=== PATIENT | female | born 1995 | race Two or more races ===

== ENCOUNTER → 2018-04-01 | Outpatient (CLI) | payer OTHER | END | disposition home or self-care (01) | LOC: LAB 14:37 | PROVIDERS: ATTEND Nurse Practitioner | DX: Z20.9 Contact with and (suspected) exposure to unspecified communicable disease (principal) | CPT/HCPCS: 36415; 86706; 86735; 86762; 86765; 86787 ==

== ENCOUNTER → 2018-06-01 | Outpatient (CLI) | payer OTHER | END | disposition home or self-care (01) | LOC: LAB 16:02 | PROVIDERS: ATTEND Physician Assistant | DX: Z20.9 Contact with and (suspected) exposure to unspecified communicable disease (principal) | CPT/HCPCS: 86765; 86787 ==

== ENCOUNTER 2025-05-13 21:16 | Emergency (ER) | payer OTHER ==
[~2025-05-13] VITALS: Ht 154.9 cm; Wt 58.6 kg
--- NOTE | 2025-05-13 21:35 | ED.PDOC ---
Back pain HPI HPI Comments 29-YEAR-OLD FEMALE PRESENTS TO THE ED WITH C/C OF RIGHT SHOULDER PAIN S/P FALL AT WORK. PATIENT STATES SHE WAS WALKING AND TRIPPED OVER AND ELECTRIC PALLET ENE. STATES SHE FELL ON HER RIGHT SIDE LANDED DIRECTLY ON HER RIGHT SHOULDER. SHE IS COMPLAINING OF RIGHT SHOULDER PAIN 8/10 ON PAIN SCALE ACHY AND SHARP IN NATURE ALSO NOTES SOME NUMBNESS. DENIES ANY WEAKNESS OR ANY OTHER KNOWN INJURY AT THIS TIME. 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 Allergies: Coded Allergies: NO KNOWN ALLERGIES (Unverified , 05/13/25) Home Meds Active Scripts Nabumetone (Nabumetone) 500 Mg Tab, 1 TAB PO BID PRN for 10 Days, #20 TAB Prov:NICKI JOHNSON JERRY 05/13/25 Information Source: Patient Mode of Arrival: Ambulatory Past Medical History PAST MEDICAL HISTORY: Denies Surgical History: Denies all surgeries SYSTEMS MANAGER History: No Pertinent SYSTEMS MANAGER History Family History Family History: Reviewed,noncontributory to illness Social History Smoker: Non-Smoker Alcohol: Denies ETOH Use Drugs: Denies Drug Use Constitutional: denies: chills, diaphoresis, fatigue, fever, malaise, sweats, weakness, others EENTM: denies: blurred vision, double vision, ear bleeding, ear discharge, ear drainage, ear pain, ear ringing, eye pain, eye redness, hearing loss, mouth pain, mouth swelling, nasal discharge, nose bleeding, nose congestion, nose pain, photophobia, tearing, throat pain, throat swelling, voice changes, others Respiratory: denies: cough, hemoptysis, orthopnea, SOB at rest, shortness of breath, SOB with excertion, stridor, wheezing, others Cardiovascular: denies: chest pain, dizzy spells, diaphoresis, Dyspnea on exertion, edema, irregular heart beat, left arm pain, lightheadedness, palpitations, PND, syncope, others Gastrointestinal: denies: abdomen distended, abdominal pain, blood streaked bowels, constipated, diarrhea, dysphagia, difficulty swallowing, hematemesis, melena, nausea, poor appetite, poor fluid intake, rectal bleeding, rectal pain, vomiting, others Genitourinary: denies: abnormal vagina bleeding, burning, dyspareunia, dysuria, flank pain, frequency, hematuria, incontinence, pain, , vagina discharge, urgency, others Neurological: denies: dizziness, fainting, headache, left sided numbness, left sided weakness, numbness, paresthesia, pre-existing deficit, right sided numbness, right sided weakness, seizure, speech problems, tingling, tremors, weakness, others Musculoskeletal: reports: joint pain, muscle pain, muscle stiffness; denies: back pain, gout, joint swelling, neck pain, others Integumetry: denies: bruises, change in color, change in hair/nails, dryness, laceration, lesions, lumps, rash, wounds, others Allergic/Immunocompromised: denies: Difficulty Healing, Frequent Infections, Hives, Itching, others Hematologic/Lymphatic: denies: anemia, blood clots, easy bleeding, easy bruising, swollen glands, others Endocrine: denies: excessive hunger, excessive sweating, excessive thirst, excessive urination, flushing, intolerance to cold, intolerance to heat, unexplained weight gain, unexplained weight loss, others Psychiatric: denies: anxiety, bipolar disorder, depression, hopeless, panic disorder, schizophrenia, sleepless, suicidal, others Physical Exam General Appearance: No Apparent Distress, Normal HEENT: Pharynx Normal Neck: Full Range of Motion, Non-Tender Respiratory: Lungs Clear, No Respiratory Distress, Normal Breath Sounds Cardiovascular: No Murmur, Normal Peripheral Pulses, Regular Rate/Rhythm Breast Exam: Deferred Gastrointestinal: No Organomegaly, Non Tender, No Pulsatile Mass, Normal Bowel Sounds, Soft Genitalia: Deferred Pelvic: Deferred Rectal: Deferred Extremities: Normal capillary refill, No pedal edema Musculoskeletal : Location: Right Extremity Location: Shoulder (MODERATE TENDERNESS PALPATED OVER ANTERIOR SHOULDER. PATIENT AND ABLE TO LIFT RIGHT ARM UP WITHOUT ASSISTANCE. 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 Was a procedure done?: Yes Sedation Sedation?: No Informed consent obtained: Yes Reduction Indication: Dislocation (Anterior dislocation of right shoulder) Intra-articular anesthetic richelle: No Post-reduction x-ray show: Good Alignment Informed consent obtained: Yes Risks/benefits/alt described: Yes Notes Patient tolerated well pain controlled with morphine 2 mg IV push. Strength sensory motion intact pre and postprocedure Back Pain Differential Dx Differential Diagnosis: Fracture, Musculoskeletal Pain X-Ray, Labs, Meds, VS Vital Signs Date Time Temp Pulse Resp B/P (MAP) Pulse Ox O2 Delivery O2 Flow Rate FiO2 05/13/25 23:25 77 18 116/85 (95) 100 05/13/25 23:14 65 18 05/13/25 22:57 83 18 145/86 05/13/25 22:25 97.8 65 18 145/72 (96) 99 97.8 05/13/25 21:18 98.3 63 18 134/86 98 98.3 Current Medications Medications (Trade) Dose Ordered Sig/Salvador Route Start Time Stop Time Status Last Admin Ketorolac Tromethamine (Toradol Injection) 60 mg ONCE ONCE IM 05/13/25 21:45 05/13/25 21:46 DC 05/13/25 22:06 Morphine Sulfate 4 mg ONCE ONCE IV 05/13/25 22:45 05/13/25 22:46 DC 05/13/25 22:57 Sodium Chloride 1,000 ml @ 1,000 mls/hr Q1H ONCE IV 05/13/25 22:45 05/13/25 23:44 DC 05/13/25 22:59 Ondansetron HCl (Zofran) 4 mg ONCE ONCE IV 05/13/25 23:00 05/13/25 23:01 DC 05/13/25 22:58 X-Ray, Labs, Meds, VS Comment See procedure note for reduction of right shoulder. Patient placed in a sling. Recommend light duty paperwork filled out copies provided. Recommend physical therapy for Hill-Sachs deformity, and to avoid reaching lifting with the right arm. Advised to follow up with her PCP and employee health. Script trial of NSAID advised to take medication as prescribed side effects were discussed. Discussed ER return precautions patient indicates understanding and agrees with discharge plan of care Time of 1ST Reevaluation: 21:30 Reevaluation 1ST: Unchanged Time of 2ND Reevaluation: 00:00 Reevaluation 2ND: Improved Patient Education/Counseling: Diagnosis, Treatment, Prognosis, Need For Follow Up Family Education/Counseling: No Family Present SEPSIS Sepsis Screen Date sepsis recognized/suspect: May 13, 2025 Time Sepsis recognized/suspect: 2120 Recent Procedure: No On Antibiotic Therapy: No Respiratory Rate >20: No Heart Rate >90: No Temp<36 C (96.8 F) or >38.3 C: No SBP <90 or MAP <65 mmHG: No New Acute Mental Status Change: No Is the patient on CPAP, BIPAP,: No Physician Orders R Shoulder 2+ View Xray (05/13/25 21:41) R Shoulder 2+ View Xray (05/13/25 23:00) Vital Signs Date Time Temp Pulse Resp B/P (MAP) Pulse Ox O2 Delivery O2 Flow Rate FiO2 05/13/25 23:25 77 18 116/85 (95) 100 05/13/25 23:14 65 18 05/13/25 22:57 83 18 145/86 05/13/25 22:25 97.8 65 18 145/72 (96) 99 97.8 05/13/25 21:18 98.3 63 18 134/86 98 98.3 Medications Medications Dose Ordered Sig/Salvador Route Start Time Stop Time Status Last Admin Dose Admin Ketorolac Tromethamine 60 mg ONCE ONCE IM 05/13/25 21:45 05/13/25 21:46 DC 05/13/25 22:06 Morphine Sulfate 4 mg ONCE ONCE IV 05/13/25 22:45 05/13/25 22:46 DC 05/13/25 22:57 Ondansetron HCl 4 mg ONCE ONCE IV 05/13/25 23:00 05/13/25 23:01 DC 05/13/25 22:58 Sodium Chloride 1,000 ml @ 1,000 mls/hr Q1H ONCE IV 05/13/25 22:45 05/13/25 23:44 DC 05/13/25 22:59 Departure 1 Departure Time of Disposition: 23:56 Impression: Primary Impression: Dislocation, shoulder, anterior Qualified Codes: S43.014A - Anterior dislocation of right humerus, initial encounter Additional Impression: Hill Sachs deformity, right Disposition: HOME / SELF CARE / HOMELESS Condition: Stable e-Prescriptions Nabumetone (Nabumetone) 500 Mg Tab 1 TAB PO BID PRN for 10 Days, #20 TAB Prov: NICKI JOHNSON 05/13/25 Discharged With: Self Critical Care Note Critical Care Time?: No Stability Stability form required: No NICKI JOHNSON [facility] May 13, 2025 21:35
[2025-05-13] MEDS: KETOROLAC TROMETH 60MG/2ML VIAL IM ONE (22:06)
--- NOTE | 2025-05-13 22:16 | DVH ---
CLINICAL INDICATION: Status post fall injury right shoulder pain TECHNIQUE: 2 views XY R SHOULDER 2+ VIEW XRAY Comparison: None FINDINGS/IMPRESSION: : Anterior dislocation with shallow appearing hill-Sachs deformity. No obvious Bankart lesion or other fracture. No significant degenerative changes. Imaged chest contents are unremarkable.
[2025-05-13 22:25] VITALS: TEMP 97.8
[2025-05-13] MEDS: MORPHINE SULFATE 4 MG/ML SYR/VIAL IV ONE (22:57)
[2025-05-13] MEDS: ONDANSETRON HCL 4 MG/2 ML VIAL IV ONE (22:58)
[2025-05-13] MEDS: SODIUM CHLORIDE 0.9% 1,000 ML IV ONE (22:59)
[2025-05-13 23:25] VITALS: BP 116/85; PULSE 77; RESP 18; O2SAT 100
--- NOTE | 2025-05-13 23:40 | DVH ---
CLINICAL INDICATION: POST REDUCTION TECHNIQUE: 2 views XY R SHOULDER 2+ VIEW XRAY Comparison: XY R SHOULDER 2+ VIEW XRAY on DOS: 05/13/25 FINDINGS/IMPRESSION: : Successful reduction of the previous anterior dislocation. The shallow Hill-Sachs deformity on prior exam is not apparent on the current exam. No other interval change.
[2025-05-13] MEDS ORDERED: NABU-72 PO (23:58)
== END 2025-05-13 23:52 | disposition home or self-care (01) ==
LOC: ER 21:16
DX: S43.014A Anterior dislocation of right humerus, initial encounter (principal); S42.291A Other displaced fracture of upper end of right humerus, initial encounter for closed fracture; Z79.899 Other long term (current) drug therapy; W01.0XXA Fall on same level from slipping, tripping and stumbling without subsequent striking against object, initial encounter; Y93.01 Activity, walking, marching and hiking; Y92.89 Other specified places as the place of occurrence of the external cause; Y99.8 Other external cause status
CPT/HCPCS: 23650; 73030; 96361; 96372; 96374; 99285; J1885; J2270; J2405; J7030